=== PATIENT | male | born 1965 | race Caucasian/White ===

== ENCOUNTER 2016-09-19 03:42 | Emergency (ER) | payer OTHER ==
[2016-09-19] MEDS ORDERED: LACTATED RINGERS 1,000 ML ONE (04:01)
[2016-09-19] MEDS ORDERED: PROCHLORPERAZINE 5 MG/ML 2 ML VIAL ONE (04:01)
[2016-09-19] MEDS ORDERED: DIPHENHYDRAMINE HCL 50 MG/1 ML VIAL ONE (04:14)
[2016-09-19 04:20] LABS: ABSOLUTE NEUTROPHIL COUNT 3.3 K/mm3 (1.8-7.7); BASO # 0.1 K/mm3 (0.0-0.2); BASO % 0.6 % (0.2-1.0); EOS # 0.2 (0.0-0.5); EOS % 2.6 % (0.9-2.9); HEMATOCRIT 42.3 % (32.0-52.0); IMM NEUT% 0.2 % (0-1); LYMPH % 47.9 % (15-45); MEAN CELL VOLUME 91.6 fl (80.0-94.0); MEAN CORPUSCULAR HEMOGLOBIN 30.3 pg (27.0-31.0); MEAN CORPUSCULAR HGB CONC 33.1 g/dl (33.0-37.0); MEAN PLATELET VOLUME 10.7 fl (7.4-10.4); MONO # 0.8 (0.0-0.8); MONO % 9.3 % (4-12); NEUT % 39.4 % (43-75); PLATELET COUNT 228 K/mm3 (130-400); RED CELL DISTRIBUTION WIDTH 11.9 % (11.5-14.5)
[2016-09-19 04:31] LABS: TROPONIN I < 0.01 ng/ml (0.0-0.06)
[2016-09-19 04:35] LABS: CKMB ISOENZYME 1.3 ng/ml (0.6-6.3)
[2016-09-19 04:52] LABS: ACETAMINOPHEN < 10 ug/ml; ALB/GLOB RATIO 1.5 (>1.0); ALBUMIN 4.3 gm/dL (3.5-5.7); ALT/SGPT 15 U/L (7-52); BLOOD UREA NITROGEN 17 mg/dL (7-25); BUN/CREATININE RATIO 14 (6-20); CALCIUM 8.8 mg/dL (8.6-10.3); GLOMERULAR FILTRATION RATE 64 mL/min (60-93); LIPASE 33 U/L (11-82); MAGNESIUM 2.2 mg/dL (1.9-2.7)
[2016-09-19 04:55] LABS: SALICYLATE < 10 mg/dl (0-30)
[2016-09-19] MEDS ORDERED: DEXAMETHASONE SOD PHOS 10 MG/1 ML VIAL ONE (05:20)
[2016-09-19] MEDS ORDERED: DIAZEPAM 5 MG/ML SYRINGE 2 ML ONE (05:20)
--- NOTE | 2016-09-19 07:20 | RAD ---
CHEST - 2 VIEWS COMPARISON: None. HISTORY: Confusion and weakness. FINDINGS: Views: Frontal and lateral chest Lungs: Normal Heart and vessels: Normal Trachea and bronchi: Normal Mediastinum and agnieszka: Normal Costophrenic sulci: Normal Chest wall and bones: Normal. Upper abdomen: Normal. IMPRESSION: Negative 2 view chest.
--- NOTE | 2016-09-19 08:17 | CT ---
HEAD W/O CON History: Confusion with weakness. Comparison: 07/03/2016. Procedure: 1 mm axial images were obtained through the head from the vertex to the base of the skull without intravenous contrast. Stacked reconstructed 5 mm images were then obtained in the axial, coronal and sagittal planes. Findings: The lateral ventricles are of normal size and shape without evidence of hydrocephalus. No evidence of midline shift is seen. No mass or mass-effect is observed. No evidence of intra- or extra-axial fluid collections or hemorrhage is identified. The clifton/white differentiation is within expected. The basilar cisterns remain uneffaced. The posterior fossa structures are unremarkable. No acute osseous abnormalities are identified. Impression: 1. A negative unenhanced CT scan of the brain. The findings were called to the emergency room at 0517 hours, 09/19/2016, by [facility].
== END 2016-09-19 06:26 | disposition home or self-care (01) ==
LOC: ED 03:42
DX: H81.10 Benign paroxysmal vertigo, unspecified ear (principal); R11.10 Vomiting, unspecified; R53.1 Weakness